=== PATIENT | male | born 1975 | race Two or more races ===

== ENCOUNTER 2023-06-28 14:31 | Emergency (ER) | payer MEDICAID, OTHER ==
[~2023-06-28] VITALS: Ht 165.1 cm; Wt 66.1 kg
[2023-06-28 17:10] LABS: Basophils # (auto) 0 10 ^3/uL (0-0.2); Basophils % (auto) 0.4 % (0.0-2.0); Eosinophils # (auto) 0.1 10 ^3/uL (0-0.8); Eosinophils % (auto) 1.4 % (0.0-7.0); Hematocrit 46.5 % (41.0-53.0); Hemoglobin 15.5 g/dL (13.5-17.5); Lymphocytes # (auto) 1.7 10 ^3/uL (0.4-5.4); Lymphocytes % (auto) 22.3 % (10.0-50.0); Mean Corpuscular Hemoglobin 31.4 pg (28.0-32.0); Mean Corpuscular Hgb Conc. 33.3 g/dL (32.0-36.0); Mean Corpuscular Volume 94.4 fL (80.0-100.0); Monocytes # (auto) 0.5 10 ^3/uL (0-1.3); Monocytes % (auto) 6.2 % (0.0-12.0); Neutrophils # (auto) 5.4 10 ^3/uL (1.6-8.6); Neutrophils % (auto) 69.7 % (37.0-80.0); Nucleated Red Blood Cells % 0.1 %; Red Blood Cells 4.93 10^6/uL (4.5-5.90); Red Cell Distribution Width 14.2 % (11.8-14.3); White Blood Cell 7.8 10^3/uL (4.4-10.8)
[2023-06-28 17:49] LABS: Alanine Aminotransferase 49 U/L (7-40); Albumin 4.6 g/dL (3.2-4.8); Alkaline Phosphatase 119 U/L (46-116); Anion Gap 5 (5-15); Aspartate Aminotransferase 23 U/L (13-40); BUN/Creatinine Ratio 11.2 (10.0-20.0); Bilirubin, Total 0.2 mg/dL (0.2-1.0); Blood Urea Nitrogen 11 mg/dL (9-23); Carbon Dioxide 30 mmol/L (20-30); Chloride 105 mmol/L (98-107); Glucose 104 mg/dL (74-106); Potassium 4.4 mmol/L (3.5-5.1); Sodium 140 mmol/L (136-145); Total Protein 6.7 g/dL (5.7-8.2)
[2023-06-28] MEDS ORDERED: IOHEXOL 300 MG/ML 100ML BOTTLE IJ ONE (18:09)
[2023-06-28] MEDS ORDERED: IOHEXOL 350 MG/ML 100ML IJ ONE (20:15)
[2023-06-28] MEDS ORDERED: AMOX875T4 PO (23:21)
[2023-06-28 23:28] VITALS: BP 103/73; PULSE 60; RESP 16; TEMP 98; O2SAT 100
== END 2023-06-28 23:33 | disposition home or self-care (01) ==
LOC: ER 14:31
DX: L03.211 Cellulitis of face (principal)
CPT/HCPCS: 36415; 70487; 80053; 83605; 85025; 87040; 99285; Q9967

== ENCOUNTER 2024-04-04 12:21 | Emergency (ER) | payer MEDICAID ==
[~2024-04-04] VITALS: Ht 165.1 cm; Wt 57.2 kg
[~2024-04-04 12:21] MED LIST: AMOX875T4 PO
[2024-04-04 14:08] VITALS: BP 121/56; PULSE 70; RESP 18; TEMP 97.5; O2SAT 97
== END 2024-04-04 14:11 | disposition home or self-care (01) ==
LOC: ER 12:51
DX: R68.84 Jaw pain (principal); Z79.899 Other long term (current) drug therapy